=== PATIENT | female | born 1980 | race Caucasian/White ===

== ENCOUNTER 2017-03-09 13:00 | Inpatient (IN) | END 2017-03-12 14:50 | disposition home or self-care (01) | DRG 780 ==

== ENCOUNTER 2017-03-15 09:07 | Outpatient (CLI) | END 2017-03-15 10:40 | disposition home or self-care (01) ==

== ENCOUNTER 2017-03-28 05:46 | Inpatient (IN) | END 2017-03-30 15:24 | disposition home or self-care (01) | DRG 775 ==